=== PATIENT | female | born 1990 | race African-American/Black ===

== ENCOUNTER 2017-02-06 18:59 | Observation (INO) | payer OTHER, MEDICAID ==
[~2017-02-06] VITALS: Ht 167.6 cm; Wt 76.2 kg
[2017-02-06 19:55] LABS: CLARITY URINE CLEAR (CLEAR); COLOR URINE YELLOW (YELLOW); GLUCOSE URINE NEGATIVE (NEGATIVE); KETONES URINE NEGATIVE (NEGATIVE); LEUKOCYTE ESTERASE URINE NEGATIVE (NEGATIVE); NITRITE URINE NEGATIVE (NEGATIVE); OCCULT BLOOD URINE NEGATIVE (NEGATIVE); PH URINE 5.5 (4.5-8.0); PROTEIN URINE NEGATIVE (NEGATIVE); SPECIFIC GRAVITY URINE 1.021 (1.005-1.030); UROBILINOGEN URINE 0.2 E.U./dL (0.2-1.0)
[2017-02-06] MEDS ORDERED: ACETAMINOPHEN WITH CODEINE 300/30MG TABLET PO NR (20:15)
[2017-02-06] MEDS ORDERED: LACTATED RINGERS 1,000 ML IV SCH (20:15)
[2017-02-06] MEDS ORDERED: PREN-88 PO (21:30)
== END 2017-02-06 22:15 | disposition home or self-care (01) ==
LOC: L&D 18:59
PROVIDERS: ADMIT Specialist; ATTEND Specialist
DX: O26.892 Other specified pregnancy related conditions, second trimester (principal); R10.9 Unspecified abdominal pain; Z3A.21 21 weeks gestation of pregnancy
CPT/HCPCS: 76770; 81003; 96360; 96361; G0378; J7120